=== PATIENT | male | born 1950 | race Caucasian/White ===

== ENCOUNTER 2021-04-02 08:50 | Day surgery (SDC) | payer MEDICARE, BC, SELFPAY ==
[2021-03-27 10:07] VITALS: BMI 27.1
--- NOTE | 2021-03-30 11:01 | HO.ANESPROP2 ---
Documented by User: Lillian Quinones 03/30/21 11:02 HPI - Anesthesia Eval Consult details Narrative: 70yo M for Upper Endoscopy [facility] Past Medical History Medical History Back pain Elevated cholesterol GERD (gastroesophageal reflux disease) Surgical History Surgical History History of arthroscopy of left knee Hx of bilateral cataract extraction Hx of colonoscopy Hx of tonsillectomy Social History Social History Advance Directives: No Advance Directives Information Provided: No Advance Directives on File: No Meds Allergies Allergy/AdvReac Type Severity Reaction Status Date / Time No Known Allergies Allergy Verified 03/27/21 10:03 Home Medications Medication Instructions Recorded Confirmed Last Taken Type atorvastatin 1 tab PO DAILY 07/11/20 03/27/21 Unknown History cholecalciferol (vitamin D3) 25 mcg PO DAILY 07/11/20 03/27/21 Unknown History [Vitamin D3] elderberry fruit [Elderberry] 200 mg PO DAILY 07/11/20 03/27/21 Unknown History famotidine [Pepcid AC] 20 mg PO DAILY PRN 07/11/20 03/27/21 Unknown History multivitamin 1 tab PO DAILY 07/11/20 03/27/21 Unknown History zinc 1 tab PO DAILY 07/11/20 Unknown History betamethasone dipropionate appl TOPICAL 03/27/21 03/27/21 Unknown History Exam Exam Date and Time: March 30, 2021 1101 Height,Weight and Vital Signs: Height 5 ft 11 in Weight 88.451 kg Assessment and Plan Assessment Anesthesia Assessment: Chart Reviewed Documented by User: Flakito Bennett 04/02/21 10:29 [facility] Past Medical History Medical History Back pain Elevated cholesterol GERD (gastroesophageal reflux disease) Surgical History Surgical History History of arthroscopy of left knee Hx of bilateral cataract extraction Hx of colonoscopy Hx of tonsillectomy Social History Social History Advance Directives: No Advance Directives Information Provided: No Advance Directives on File: No Meds Allergies Allergy/AdvReac Type Severity Reaction Status Date / Time No Known Allergies Allergy Verified 03/27/21 10:03 Home Medications Medication Instructions Recorded Confirmed Last Taken Type atorvastatin 1 tab PO DAILY 07/11/20 03/27/21 Unknown History cholecalciferol (vitamin D3) 25 mcg PO DAILY 07/11/20 03/27/21 Unknown History [Vitamin D3] elderberry fruit [Elderberry] 200 mg PO DAILY 07/11/20 03/27/21 Unknown History famotidine [Pepcid AC] 20 mg PO DAILY PRN 07/11/20 03/27/21 Unknown History multivitamin 1 tab PO DAILY 07/11/20 03/27/21 Unknown History zinc 1 tab PO DAILY 07/11/20 Unknown History betamethasone dipropionate appl TOPICAL 03/27/21 03/27/21 Unknown History Exam Airway Mallampati Class: III TM Dist: >3cm Neck ROM: Full Loose/Missing/Broken Teeth: No Heart: [id number] Lungs: cta b/l Assessment and Plan Assessment Anesthesia Assessment: Anesthesia Plan Discussed, PAT Visit and Chart Reviewed Final Anesthetic Review NPO: Yes ASA Class: II Final Preanesthetic Review: No Changes in Pt Med Stat, Meds/Allgs Chart Reviewed, Consent Obtained/Reviewed and Anes Risks/Benef Reviewed Patient Risk: Low Procedure Risk: Low Assessment/Block/Sedation in SS: Assess/Block/Sedation-SS Anesthetic Plan Anesthetic Plan: MAC: and Agree w/ Assess. and Plan Disposition: Standard PACU
[2021-04-02 08:59] VITALS: BP 129/87; PULSE 81; RESP 16; O2SAT 95
[2021-04-02] MEDS: Lactated Ringers 1,000 ML 100 ML IVCONT (09:11)
[2021-04-02 11:00] VITALS: BP 112/71; PULSE 74; RESP 12; TEMP 36.2; O2SAT 96
--- NOTE | 2021-04-02 11:03 | P.BOP_ITS ---
Brief Operative Note Date of Service: 04/02/21 Pre-op diagnosis: GERD Post-op diagnosis: other (Hiatal hernia, esophagitis, R/O Weems's) Procedure: EGD with biopsies Surgeon: Miguel Guzman Anesthesia: MAC Was an Instructional Assistant used for this Procedure?: No Estimated blood loss (mL): 4.0 Pathology: other (A. EG Junction at 39cm) Condition: stable Disposition: PACU
[2021-04-02 11:14] VITALS: BP 114/81; PULSE 66; RESP 18; TEMP 36.9; O2SAT 95
--- NOTE | 2021-04-02 11:29 | OP_ITS ---
SURGEON: Miguel Guzman MD INDICATIONS: The patient presents for evaluation of gastroesophageal reflux. Full consent has been obtained from him for this, including risks of bleeding and perforation. PREOPERATIVE DIAGNOSIS: Gastroesophageal reflux. POSTOPERATIVE DIAGNOSIS: PROCEDURE PERFORMED: Esophagogastroduodenoscopy with biopsies. ESTIMATED BLOOD LOSS: COMPLICATIONS: ANESTHESIA: Monitored anesthesia care. ASSISTANTS: SPECIMENS: POSTOPERATIVE DIAGNOSES: Gastroesophageal reflux, hiatal hernia, esophagitis, rule out Weems's esophagus. DESCRIPTION OF PROCEDURE: The patient was placed in the left lateral decubitus position. The Olympus video gastroscope was passed in the posterior oropharynx and upper esophagus under direct vision. The scope was passed slowly to the distal esophagus. The gastroesophageal junction appeared at 39 cm. There was some irregularity and small areas of possible Weems's mucosa. There was also a single 5 to 10 mm erosion. There was no sign of any mass nor stricture. The scope entered into the stomach. There was a small hiatal hernia. The scope was advanced to the pylorus and the duodenum was cannulated to the descending portion. The duodenum including the bulb appeared normal without mass or ulceration. The scope was withdrawn back in the stomach. The gastric antrum and body appeared normal with good peristalsis. Scope was retroflexed visualizing the proximal stomach carefully which appeared normal, without any sign of mass or ulceration. The scope was straightened out and withdrawn back into the esophagus. Multiple biopsies were obtained at the EG junction at 39 cm. Proximal to this, esophageal mucosa appeared normal. The scope was withdrawn from the patient. He tolerated the procedure well and was returned to the recovery area in stable condition. IMPRESSION: 1. Hiatal hernia. 2. Gastroesophageal reflux, rule out Weems's esophagus. 3. Reflux esophagitis. PLAN: The results of the biopsies will be checked. Given the findings, I shall give my prescription to use omeprazole 20 mg daily. He does report that he has been using Pepcid every evening, which has been working well for him. However, given the endoscopic findings, I think it would be reasonable to put him on a proton pump inhibitor instead. If there is Weems's esophagus without dysplasia, I would recommend a repeat upper endoscopy in 3 years. He will be seen in 1 year for a followup colonoscopy. This has been discussed with his . MD VAL Gallardo/ELIS / [id number]
== END 2021-04-02 11:40 | disposition home or self-care (01) ==
PROVIDERS: PCP Internal Medicine; Visit Provider Internal Medicine
PROC: 0DJ08ZZ Inspection of Upper Intestinal Tract, Via Natural or Artificial Opening Endoscopic (ICD-10-PCS; CPT 43235; principal; 2021-04-02 10:00)
DX: K21.00 Gastro-esophageal reflux disease with esophagitis, without bleeding (principal); K44.9 Diaphragmatic hernia without obstruction or gangrene; E78.00 Pure hypercholesterolemia, unspecified; Z79.899 Other long term (current) drug therapy
CPT/HCPCS: 43239; 88305

== ENCOUNTER 2022-11-01 11:54 | Day surgery (SDC) | payer MEDICARE, BC, SELFPAY ==
[2022-11-01 12:03] VITALS: BP 132/87; PULSE 80; RESP 16; TEMP 36.7; O2SAT 96; BMI 28.7
--- NOTE | 2022-11-01 13:55 | HO.ANESPROP2 ---
HPI - Anesthesia Eval Consult details Narrative: ho polyps PMFSH Past Medical History Medical History Back pain Elevated cholesterol GERD (gastroesophageal reflux disease) Family History Family history of problems with anesthesia: No Surgical History Surgical History History of arthroscopy of left knee Hx of bilateral cataract extraction Hx of colonoscopy Hx of tonsillectomy History of Problems with Anesthesia: No Social History Social History Patient Tobacco Use Status: Never used Tobacco Use of substances other than those prescribed or required for medical reasons: No Advance Directives: No Advance Directives Information Provided: Yes Nutrition Risks: No Nutritional Risk Meds Allergies Allergy/AdvReac Type Severity Reaction Status Date / Time omeprazole Allergy Unknown Verified 10/31/22 11:48 Active Medications: Current Medications Sodium Biphosphate/Sodium Phosphate (Sodium Phosphate,[place]-Dibasic 133 Ml Enema) 133 ml ME ONCE PRN PRN Reason: Poor Colonoscopy Prep Results Home Medications Medication Instructions Recorded Confirmed Last Taken Type atorvastatin 20 mg tablet 1 tab PO DAILY 07/11/20 03/27/21 Unknown History cholecalciferol (vitamin D3) 25 25 mcg PO DAILY 07/11/20 03/27/21 Unknown History mcg (1,000 unit) capsule (Vitamin D3) elderberry fruit 200 mg capsule 200 mg PO DAILY 07/11/20 03/27/21 Unknown History famotidine 10 mg tablet (Pepcid AC) 20 mg PO DAILY PRN Gastric Reflux 07/11/20 03/27/21 Unknown History multivitamin 1 tab PO DAILY 07/11/20 03/27/21 Unknown History zinc 1 tab PO DAILY 07/11/20 Unknown History betamethasone dipropionate 0.05 % appl topical 03/27/21 03/27/21 Unknown History topical cream Exam Exam Date and Time: November 01, 2022 1355 Height,Weight and Vital Signs: Height 5 ft 10 in Weight 90.718 kg Last Vital Signs Temp 98.1 F 11/01/22 12:03 Pulse 80 11/01/22 12:03 Resp 16 11/01/22 12:03 BP 132/87 11/01/22 12:03 Pulse Ox 96 11/01/22 12:03 O2 Del Method 11/01/22 12:03 Airway Mallampati Class: II TM Dist: >3cm Neck ROM: Full Loose/Missing/Broken Teeth: No Heart: rr Lungs: cta Assessment and Plan Final Anesthetic Review Family History of Problems with Anesthesia: No History of Problems with Anesthesia: No NPO: Yes ASA Class: II Final Preanesthetic Review: No Changes in Pt Med Stat, Meds/Allgs Chart Reviewed, Consent Obtained/Reviewed and Anes Risks/Benef Reviewed Patient Risk: Low Procedure Risk: Low Anesthetic Plan Anesthetic Plan: MAC: Disposition: Standard PACU
[2022-11-01 14:25] VITALS: BP 110/65; PULSE 82; RESP 16; TEMP 36.4; O2SAT 95
--- NOTE | 2022-11-01 14:25 | PM.OP ---
Brief Operative Note Date of Service: 11/01/22 Pre-op diagnosis: Screening Post-op diagnosis: other (Colon polyps) Procedure: Colonoscopy to the cecum and TI with bx/removal of polyps, and hot snare polypectomy in the Ascending colon Surgeon: Miguel Guzman Anesthesia: MAC Was an Head Baggage Porter used for this Procedure?: No Estimated blood loss (mL): 2.0 Pathology: other (A. Polyp at 50cm B. Ascending colon polyp C. Polyp at 30cm) Condition: stable Disposition: PACU
[2022-11-01 14:40] VITALS: BP 121/75; PULSE 69; RESP 18; TEMP 36.4; O2SAT 97
--- NOTE | 2022-11-02 01:51 | OP_ITS ---
SURGEON: Miguel Guzman MD INDICATIONS: The patient presents for evaluation of colorectal cancer screening and personal history of tubular adenoma of the colon. Full consent has been obtained from him for this, including risks of bleeding and perforation. PREOPERATIVE DIAGNOSIS: POSTOPERATIVE DIAGNOSIS: PROCEDURE PERFORMED: Colonoscopy to the cecum and terminal ileum with hot snare polypectomy, and biopsy and removal of polyps. ESTIMATED BLOOD LOSS: COMPLICATIONS: ANESTHESIA: Monitored anesthesia care. ASSISTANTS: SPECIMENS: PREOPERATIVE DIAGNOSES: Colorectal cancer screening and personal history of tubular adenomas of the colon. POSTOPERATIVE DIAGNOSES: Colorectal cancer screening and personal history of tubular adenomas of the colon, colon polyps, diverticulosis, and internal hemorrhoids. PROCEDURE IN DETAIL: The patient was placed in the left lateral decubitus position. The digital rectal exam revealed no abnormalities. The Olympus video pediatric colonoscope was entered into the rectum and advanced easily to the cecum. Once in the cecum, I did identify a normal-appearing cecal pouch with appendiceal orifice and a normal-appearing ileocecal valve. The terminal ileum was cannulated and appeared normal. Scope was withdrawn back into the colon. The entire cecum and ileocecal valve appeared normal. Scope was slowly withdrawn assessing all mucosal surfaces carefully. Preparation was excellent. In the ascending colon, there was approximately 10 mm polyp which was removed by hot snare polypectomy, recovered by suction. The polypectomy site appeared clean, without any sign of residual polyp nor bleeding. At 50 cm and at 30 cm were flat less than 5 mm polyps which were each biopsied and completely removed by cold biopsy forceps. I did not visualize any other polyps, colitis nor angiodysplasia. There was a mild amount of sigmoid diverticulosis. In the rectum, scope was retroflexed, visualizing internal hemorrhoids, but no other pathology. The rectal mucosa appeared normal. The scope was straightened and withdrawn from the patient. He tolerated the procedure well and was returned to the recovery area in stable condition. IMPRESSION: 1. Colon polyps. 2. Diverticulosis. 3. Internal hemorrhoids. PLAN: The results of the biopsies will be checked. I would recommend a repeat colonoscopy in 5 years. He was advised to not to use any aspirin or NSAIDS for one week. This has been discussed with his . MD VAL Gallardo/ELIS / [id number]
== END 2022-11-01 15:00 | disposition home or self-care (01) ==
PROVIDERS: PCP Internal Medicine; Visit Provider Internal Medicine
PROC: 0DJD8ZZ Inspection of Lower Intestinal Tract, Via Natural or Artificial Opening Endoscopic (ICD-10-PCS; CPT 45378; principal; 2022-11-01 13:20)
DX: Z12.11 Encounter for screening for malignant neoplasm of colon (principal); Z86.010 Personal history of colon polyps; D12.2 Benign neoplasm of ascending colon; D12.5 Benign neoplasm of sigmoid colon; K57.30 Diverticulosis of large intestine without perforation or abscess without bleeding; K64.8 Other hemorrhoids; K21.00 Gastro-esophageal reflux disease with esophagitis, without bleeding; E78.5 Hyperlipidemia, unspecified; Z79.899 Other long term (current) drug therapy; Z88.8 Allergy status to other drugs, medicaments and biological substances; Z87.891 Personal history of nicotine dependence
CPT/HCPCS: 45385; 45380; 88305

== ENCOUNTER 2022-12-18 16:07 | Emergency (ER) | payer MEDICARE, BC, SELFPAY ==
--- NOTE | ~2022-12-18 | XR_ITS ---
EXAMINATION: XR CHEST CLINICAL INFORMATION: Left-sided chest pain. COMPARISON: 07/20/2009 chest radiographs. TECHNIQUE: 2 views of the chest were obtained. FINDINGS: No significant abnormality is noted involving the heart, lungs, mediastinum, bony thorax or soft tissues. XR/XR chest 2V IMPRESSION: No acute cardiopulmonary process.
--- NOTE | ~2022-12-18 | CT_ITS ---
EXAMINATION: CT ANGIOGRAM OF THE CHEST WITH AND WITHOUT CONTRAST (CT PULMONARY ANGIOGRAM FOR PE) CLINICAL INFORMATION: Chest pain and elevated D-dimer. COMPARISON: Chest radiograph done earlier the same day. TECHNIQUE: Prior to contrast administration, noncontrast localization images were obtained. Subsequently, multidetector volumetric imaging was performed from the thoracic inlet to below the diaphragms following the administration of 65 mL Omnipaque 350 intravenous contrast. No contrast reaction reported Sagittal, coronal, and MIP oblique sagittal reformatted images were obtained on the CT workstation, uploaded to PACS, and reviewed. This CT examination was performed using dose optimization techniques as appropriate, variously including the following: *Automated exposure control *Adjustment of mA and/or kV according to patient size (this includes techniques or standardized protocols for targeted exams where dose is matched to indication/reason for exam; i.e. extremities or head) *Use of iterative reconstruction technique Total exam dose-length product: 357 mGy-cm FINDINGS: QUALITY OF STUDY/CONTRAST BOLUS: Satisfactory. PULMONARY ARTERIES: No pulmonary emboli. THORACIC AORTA: Prominence of the ascending thoracic aorta measuring up to 4.2 cm. No dissection. LUNG: No focal consolidation, nodules or masses. PLEURA: No pleural effusion or pneumothorax. MEDIASTINUM: Normal heart size. No pericardial effusion. No hilar or mediastinal lymphadenopathy. No evidence of septal bowing or right heart strain. CORONARY ARTERY CALCIFICATION: None visualized on this study. CHEST WALL/AXILLA: Present. OSSEOUS STRUCTURES: No acute or suspicious osseous abnormality. UPPER ABDOMEN: Simple left upper pole renal cyst measuring up to 2.9 cm. Findings are not clinically significant and no dedicated follow-up imaging is recommended. The visualized upper abdominal structures are otherwise unremarkable. No reflux of contrast into the hepatic veins to suggest elevated right heart pressures. CT/CT angio chest PE protocol IMPRESSION: 1. No CT angiographic evidence of acute pulmonary embolism. 2. No pulmonary nodule, mass, or airspace consolidation. 3. Prominence of the ascending thoracic aorta measuring up to 4.2 cm VTE: negative
[2022-12-18 16:11] VITALS: BP 151/84; PULSE 87; RESP 18; TEMP 37.1; O2SAT 97; BMI 27.8
--- NOTE | 2022-12-18 16:11 | ECG_ITS ---
Test Reason : chest pain Blood Pressure : / mmHG Vent. Rate : 076 BPM Atrial Rate : 076 BPM P-R Int : 162 ms QRS Dur : 078 ms QT Int : 394 ms P-R-T Axes : 029 013 049 degrees QTc Int : 443 ms Normal sinus rhythm Nonspecific ST abnormality Abnormal ECG No previous ECGs available Referred By: Ofelia Yang Electronically Signed By:EILEEN CUNHA MD
--- NOTE | 2022-12-18 16:12 | ED_ITS ---
HPI - Chest Pain General Chief Complaint: Chest Pain <TRINIDAD Patel - Last Filed: 12/18/22 16:14> Stated Complaint: chest pains <TRINIDAD Patel - Last Filed: 12/18/22 16:14> Time Seen by Provider: 12/18/22 18:28 <TRINIDAD Patel - Last Filed: 12/18/22 16:14> Source: patient and family () <Jim Sandoval MD - Last Filed: 12/18/22 20:58> Mode of arrival: ambulatory <Jim Sandoval MD - Last Filed: 12/18/22 20:58> Limitations: no limitations <Jim Sandoval MD - Last Filed: 12/18/22 20:58> History of Present Illness HPI narrative: 72-year-old male presented to the ED for left-sided chest pain. Left-sided chest pain started 4 days ago as a dull aching pain localized to the left side 1st onset of the pain while he was sleeping that it woke him up from sleep, patient was constant had some relief yesterday today since morning yesterday feels the pain again, pain is localized to the left side of the chest with no radiation feels like dull aching pain, no clear aggravating or relieving factors. Do not appear to be exertional, no SOB. Novel, lower extremities swelling or tenderness, no history of PE or DVT. No trauma to the chest no recent strenuous activity. <Jim Sandoval MD - Last Filed: 12/18/22 20:58> Related Data Home Medications: Home Medications Medication Instructions Recorded Confirmed atorvastatin 20 mg tablet 1 tab PO DAILY 07/11/20 03/27/21 cholecalciferol (vitamin D3) 25 25 mcg PO DAILY 07/11/20 03/27/21 mcg (1,000 unit) capsule (Vitamin D3) elderberry fruit 200 mg capsule 200 mg PO DAILY 07/11/20 03/27/21 famotidine 10 mg tablet (Pepcid AC) 20 mg PO DAILY PRN Gastric Reflux 07/11/20 03/27/21 multivitamin 1 tab PO DAILY 07/11/20 03/27/21 zinc 1 tab PO DAILY 07/11/20 betamethasone dipropionate 0.05 % appl topical 03/27/21 03/27/21 topical cream <TRINIDAD Patel - Last Filed: 12/18/22 16:14> Allergies/Adverse Reactions: Allergies Allergy/AdvReac Type Severity Reaction Status Date / Time omeprazole Allergy Unknown Verified 12/18/22 16:09 <TRINIDAD Patel - Last Filed: 12/18/22 16:14> Review of Systems Review of Systems: All other systems are reviewed and are negative Constitutional: Reports as per HPI and Reports no additional constitutional complaints Eyes: Reports as per HPI and Reports no additional eye complaints Reports system reviewed and no additional complaints, except as documented Cardiovascular: Reports as per HPI and Reports no additional cardiovascular complaints Respiratory: Reports as per HPI and Reports no additional respiratory complaints Gastrointestinal: Reports as per HPI and Reports no additional gastrointestinal complaints Genitourinary: Reports no additional female genitourinary complaints Musculoskeletal: Reports no additional musculoskeletal complaints Skin/Breast: Reports system reviewed and no additional complaints, except as docu Psychiatric: Reports no additional psychiatric complaints Endocrine: Reports no additional endocrine complaints Hematologic/Lymphatic: Reports no additional hematologic/lymphatic complaints Allergic/Immunologic: Reports no additional allergic/immunologic complaints Reports system reviewed and no additional complaints, except as documented and Reports Abnormal speech present <Jim Sandoval MD - Last Filed: 12/18/22 20:58> [facility] Past Medical History Medical History: Medical History Back pain Elevated cholesterol GERD (gastroesophageal reflux disease) <TRINIDAD Patel - Last Filed: 12/18/22 16:14> Surgical History: Surgical History History of arthroscopy of left knee Hx of bilateral cataract extraction Hx of colonoscopy Hx of tonsillectomy <TRINIDAD Patel - Last Filed: 12/18/22 16:14> Social History Social History: Social History Alcohol intake: current Alcohol intake frequency: holidays/special occasions only Patient Tobacco Use Status: Never used Tobacco Smoked in Last 30 Days: No Use of substances other than those prescribed or required for medical reasons: No Advance Directives: No Advance Directives Information Provided: No <TRINIDAD Patel - Last Filed: 12/18/22 16:14> Physical Exam Vital Signs: Vital Signs: Last Vital Signs Temp 97.9 F 12/18/22 19:38 Pulse 72 12/18/22 19:38 Resp 18 12/18/22 19:38 BP 142/88 H 12/18/22 19:38 Pulse Ox 98 12/18/22 19:38 O2 Del Method Room Air 12/18/22 19:38 BMI result Body Mass Index 27.8 <TRINIDAD Patel - Last Filed: 12/18/22 16:14> Vital Signs: Last Vital Signs Temp 97.9 F 12/18/22 19:38 Pulse 72 12/18/22 19:38 Resp 18 12/18/22 19:38 BP 142/88 H 12/18/22 19:38 Pulse Ox 98 12/18/22 19:38 O2 Del Method Room Air 12/18/22 19:38 BMI result Body Mass Index 27.8 Vital signs have been reviewed as appeared to be correct. Blood pressure normal. Heart rate normal. Respiration rate normal. Temperature normal. Oxygen saturation normal. <Jim Sandoval MD - Last Filed: 12/18/22 20:58> Appearance: Alert. Oriented X3. No acute distress. Head: Normal external exam. Normocephalic. Atraumatic. No [place] signs noted. No raccoon eyes noted Eyes: PERRLA. EOMI. Conjunctiva and sclera normal. Eyelids normal. ENT: TM's Normal. Pharynx normal. Uvula midline. Moist mucous membranes. No trismus noted. No drooling noted. No muffled voice noted. Neck: Normal inspection. Neck supple. FROM. No adenopathy. Thyroid Normal. No meningeal signs. No neck mass noted. CVS: Normal heart rate and rhythm. Heart sound normal. No murmurs noted. Pulses normal throughout. Respiratory: No respiratory distress. Painless inspiration. Breath sounds normal. No wheezes/rales/rhonchi noted. Reproducible tenderness to the left side of the chest, no step-off, no deformity. No accessory muscle usage noted or decreased air movement noted. Abdomen: Soft and nontender. Bowel sounds normal in all 4 quadrants. No distention noted. No organomegaly noted. No visible injury noted. Back: No CVA tenderness. Full range of motion noted. Skin: Skin warm and dry. Normal skin color. Normal skin turgor. No rashes/lesions/lacerations noted. Extremities: No lower extremity edema. Extremities exhibit normal range of motion. Extremities nontender. Neuro: Oriented X 3. Cranial nerve exam: II-XII are grossly intact No motor deficit. No sensory deficit. Reflexes normal. <Jim Sandoval MD - Last Filed: 12/18/22 20:58> Course Course Course Narrative: RME - 72 y/o male with history of HLD and GERD who presents to the ER for evaluation of intermittent, left sided sharp chest pains for the last 4 days. Pain woke him up out of sleep Friday night, was diaphoretic. He thought it was GERD. Eventually went away. Gone by yesterday but came back today at work. No further diaphoresis episodes, no associated SOB or nausea. Plan: EKG, CXR, labs, ACS r/o <TRINIDAD Patel - Last Filed: 12/18/22 16:14> Reevaluation(s) Reevaluation #1: A 72-year-old male appear well came in with atypical left-sided chest pain, unremarkable EKG with negative troponin, history is not suggesting ACS. No recent travel or lower extremity swelling or edema, elevated D-dimer with negative CT angio of the chest for pulmonary embolism, normal RR/HR and O2 sat making pulmonary embolism is not a favorable diagnosis. Unremarkable x-ray. Patient is tender to the chest wall with palpation. <Jim Sandoval MD - Last Filed: 12/18/22 20:58> Time: 18:47 <Jim Sandoval MD - Last Filed: 12/18/22 20:58> Medications Administered Discontinued Medications Generic Name Dose Route Start Last Admin Trade Name Freq PRN Reason Stop Dose Admin Ibuprofen 600 mg 12/18/22 18:38 12/18/22 19:05 Ibuprofen 600 Mg Tablet PO 12/18/22 18:39 600 mg ONCE ONE Administration Iohexol 100 ml 12/18/22 20:20 12/18/22 20:21 Iohexol 350 Mg/Ml 100 Ml Infus..Btl IV 12/18/22 20:21 65 ml ONCE ONE Administration <TRINIDAD Patel - Last Filed: 12/18/22 16:14> Medications Administered Discontinued Medications Generic Name Dose Route Start Last Admin Trade Name Dorian PRN Reason Stop Dose Admin Ibuprofen 600 mg 12/18/22 18:38 12/18/22 19:05 Ibuprofen 600 Mg Tablet PO 12/18/22 18:39 600 mg ONCE ONE Administration Iohexol 100 ml 12/18/22 20:20 12/18/22 20:21 Iohexol 350 Mg/Ml 100 Ml Infus..Btl IV 12/18/22 20:21 65 ml ONCE ONE Administration <Jim Sandoval MD - Last Filed: 12/18/22 20:58> Medical Decision Making Differential Diagnosis Differential Diagnoses: The differential diagnosis associated with the presentation includes (ACS, pulmonary embolism, pneumonia, pneumothorax, myofascial and muscular pain, rib fracture.) <Jim Sandoval MD - Last Filed: 12/18/22 20:58> Lab Data MDM Lab Attestation statement: I reviewed the patient's lab results. <Jim Sandoval MD - Last Filed: 12/18/22 20:58> Result Diagrams: 12/18/22 16:27 12/18/22 16:27 <TRINIDAD Patel - Last Filed: 12/18/22 16:14> Labs: Lab Results 12/18/22 12/18/22 12/18/22 Range/Units 16:27 16:27 16:27 WBC 5.9 (4.8-10.8) X10*3/uL RBC 4.72 (4.60-5.80) X10*6/uL Hgb 14.3 (14.0-18.0) g/dl Hct 43.5 (42.0-52.0) % MCV 92.2 (80.0-98.0) fL MCH 30.3 (27.0-33.0) pg MCHC 32.9 (31.0-36.0) g/dl RDW 12.5 (11.0-16.0) % Plt Count 171 (160-400) X10*3/uL MPV 9.2 L (9.4-12.4) fL Immature Gran % (Auto) 0.3 (0.0-0.4) % Neut % (Auto) 56.1 (45-73) % Lymph % (Auto) 32.5 (20-40) % [place] % (Auto) 9.4 (2-11) % Eos % (Auto) 1.0 (0-4) % Baso % (Auto) 0.7 (0-2) % Lymph # (Auto) 1.9 (1.2-4.9) X10*3/uL [place] # (Auto) 0.6 (0.1-1.2) X10*3/uL Eos # (Auto) 0.1 (0.0-0.4) X10*3/uL Baso # (Auto) 0.0 (0.0-0.2) X10*3/uL Abs Immat Gran (auto) 0.02 (0.00-0.03) X10*3/uL Absolute Neuts (auto) 3.3 (2.0-8.3) x10*3/uL Absolute Nucleated RBC 0.000 (0.0-0.012) X10*3/uL Nucleated RBC % (auto) 0.0 (0.0-0.2) /100WBC PT 12.8 (10.0-13.1) SEC INR 1.1 (0.9-1.1) APTT 31.4 (26.0-36.4) SEC D-Dimer High Sensitivty 391 NG/ML Sodium 141 (135-145) mmol/L Potassium 3.9 (3.3-5.1) mmol/L Chloride 104 (96-108) mmol/L Carbon Dioxide 30 H (22-29) mmol/L Anion Gap 11 L (12-20) BUN 19 H (9-16) mg/dL Creatinine 0.95 (0.5-1.4) mg/dL Estim Creat Clear Calc 79.7 Estimated GFR > 60 Random Glucose 98 (60-115) mg/dL Calcium 8.7 (8.4-10.2) mg/dL Magnesium 2.2 (1.6-2.6) mg/dL Total Bilirubin 0.8 (0.0-1.0) mg/dL Direct Bilirubin 0.3 (0.0-0.5) mg/dL AST 21 (5-37) U/L ALT 16 (0-40) U/L Alkaline Phosphatase 47 (39-117) U/L Troponin I High Sens (<3.5-35.0) ng/L Total Protein 6.2 L (6.5-8.0) g/dL Albumin 3.9 (3.5-5.0) g/dL Urine Color Urine Appearance Urine pH (5.0-9.0) Ur Specific [place] (1.005-1.025) Urine Protein (Neg-Trace) mg/dL Urine Glucose (UA) (Negative) mg/dL Urine Ketones (Negative) mg/dL Urine Blood (Negative) Urine Nitrite (Negative) Ur Leukocyte Esterase (Negative) 12/18/22 12/18/22 Range/Units 16:27 19:54 WBC (4.8-10.8) X10*3/uL RBC (4.60-5.80) X10*6/uL Hgb (14.0-18.0) g/dl Hct (42.0-52.0) % MCV (80.0-98.0) fL MCH (27.0-33.0) pg MCHC (31.0-36.0) g/dl RDW (11.0-16.0) % Plt Count (160-400) X10*3/uL MPV (9.4-12.4) fL Immature Gran % (Auto) (0.0-0.4) % Neut % (Auto) (45-73) % Lymph % (Auto) (20-40) % [place] % (Auto) (2-11) % Eos % (Auto) (0-4) % Baso % (Auto) (0-2) % Lymph # (Auto) (1.2-4.9) X10*3/uL [place] # (Auto) (0.1-1.2) X10*3/uL Eos # (Auto) (0.0-0.4) X10*3/uL Baso # (Auto) (0.0-0.2) X10*3/uL Abs Immat Gran (auto) (0.00-0.03) X10*3/uL Absolute Neuts (auto) (2.0-8.3) x10*3/uL Absolute Nucleated RBC (0.0-0.012) X10*3/uL Nucleated RBC % (auto) (0.0-0.2) /100WBC PT (10.0-13.1) SEC INR (0.9-1.1) APTT (26.0-36.4) SEC D-Dimer High Sensitivty NG/ML Sodium (135-145) mmol/L Potassium (3.3-5.1) mmol/L Chloride (96-108) mmol/L Carbon Dioxide (22-29) mmol/L Anion Gap (12-20) BUN (9-16) mg/dL Creatinine (0.5-1.4) mg/dL Estim Creat Clear Calc Estimated GFR Random Glucose (60-115) mg/dL Calcium (8.4-10.2) mg/dL Magnesium (1.6-2.6) mg/dL Total Bilirubin (0.0-1.0) mg/dL Direct Bilirubin (0.0-0.5) mg/dL AST (5-37) U/L ALT (0-40) U/L Alkaline Phosphatase (39-117) U/L Troponin I High Sens < 2.7 (<3.5-35.0) ng/L Total Protein (6.5-8.0) g/dL Albumin (3.5-5.0) g/dL Urine Color Yellow Urine Appearance Clear Urine pH 7.0 (5.0-9.0) Ur Specific [place] 1.020 (1.005-1.025) Urine Protein Negative (Neg-Trace) mg/dL Urine Glucose (UA) Negative (Negative) mg/dL Urine Ketones Negative (Negative) mg/dL Urine Blood Negative (Negative) Urine Nitrite Negative (Negative) Ur Leukocyte Esterase Negative (Negative) <TRINIDAD Patel - Last Filed: 12/18/22 16:14> Lab Results 12/18/22 12/18/22 12/18/22 Range/Units 16:27 16:27 16:27 WBC 5.9 (4.8-10.8) X10*3/uL RBC 4.72 (4.60-5.80) X10*6/uL Hgb 14.3 (14.0-18.0) g/dl Hct 43.5 (42.0-52.0) % MCV 92.2 (80.0-98.0) fL MCH 30.3 (27.0-33.0) pg MCHC 32.9 (31.0-36.0) g/dl RDW 12.5 (11.0-16.0) % Plt Count 171 (160-400) X10*3/uL MPV 9.2 L (9.4-12.4) fL Immature Gran % (Auto) 0.3 (0.0-0.4) % Neut % (Auto) 56.1 (45-73) % Lymph % (Auto) 32.5 (20-40) % [place] % (Auto) 9.4 (2-11) % Eos % (Auto) 1.0 (0-4) % Baso % (Auto) 0.7 (0-2) % Lymph # (Auto) 1.9 (1.2-4.9) X10*3/uL [place] # (Auto) 0.6 (0.1-1.2) X10*3/uL Eos # (Auto) 0.1 (0.0-0.4) X10*3/uL Baso # (Auto) 0.0 (0.0-0.2) X10*3/uL Abs Immat Gran (auto) 0.02 (0.00-0.03) X10*3/uL Absolute Neuts (auto) 3.3 (2.0-8.3) x10*3/uL Absolute Nucleated RBC 0.000 (0.0-0.012) X10*3/uL Nucleated RBC % (auto) 0.0 (0.0-0.2) /100WBC PT 12.8 (10.0-13.1) SEC INR 1.1 (0.9-1.1) APTT 31.4 (26.0-36.4) SEC D-Dimer High Sensitivty 391 NG/ML Sodium 141 (135-145) mmol/L Potassium 3.9 (3.3-5.1) mmol/L Chloride 104 (96-108) mmol/L Carbon Dioxide 30 H (22-29) mmol/L Anion Gap 11 L (12-20) BUN 19 H (9-16) mg/dL Creatinine 0.95 (0.5-1.4) mg/dL Estim Creat Clear Calc 79.7 Estimated GFR > 60 Random Glucose 98 (60-115) mg/dL Calcium 8.7 (8.4-10.2) mg/dL Magnesium 2.2 (1.6-2.6) mg/dL Total Bilirubin 0.8 (0.0-1.0) mg/dL Direct Bilirubin 0.3 (0.0-0.5) mg/dL AST 21 (5-37) U/L ALT 16 (0-40) U/L Alkaline Phosphatase 47 (39-117) U/L Troponin I High Sens (<3.5-35.0) ng/L Total Protein 6.2 L (6.5-8.0) g/dL Albumin 3.9 (3.5-5.0) g/dL Urine Color Urine Appearance Urine pH (5.0-9.0) Ur Specific [place] (1.005-1.025) Urine Protein (Neg-Trace) mg/dL Urine Glucose (UA) (Negative) mg/dL Urine Ketones (Negative) mg/dL Urine Blood (Negative) Urine Nitrite (Negative) Ur Leukocyte Esterase (Negative) 12/18/22 12/18/22 Range/Units 16:27 19:54 WBC (4.8-10.8) X10*3/uL RBC (4.60-5.80) X10*6/uL Hgb (14.0-18.0) g/dl Hct (42.0-52.0) % MCV (80.0-98.0) fL MCH (27.0-33.0) pg MCHC (31.0-36.0) g/dl RDW (11.0-16.0) % Plt Count (160-400) X10*3/uL MPV (9.4-12.4) fL Immature Gran % (Auto) (0.0-0.4) % Neut % (Auto) (45-73) % Lymph % (Auto) (20-40) % [place] % (Auto) (2-11) % Eos % (Auto) (0-4) % Baso % (Auto) (0-2) % Lymph # (Auto) (1.2-4.9) X10*3/uL [place] # (Auto) (0.1-1.2) X10*3/uL Eos # (Auto) (0.0-0.4) X10*3/uL Baso # (Auto) (0.0-0.2) X10*3/uL Abs Immat Gran (auto) (0.00-0.03) X10*3/uL Absolute Neuts (auto) (2.0-8.3) x10*3/uL Absolute Nucleated RBC (0.0-0.012) X10*3/uL Nucleated RBC % (auto) (0.0-0.2) /100WBC PT (10.0-13.1) SEC INR (0.9-1.1) APTT (26.0-36.4) SEC D-Dimer High Sensitivty NG/ML Sodium (135-145) mmol/L Potassium (3.3-5.1) mmol/L Chloride (96-108) mmol/L Carbon Dioxide (22-29) mmol/L Anion Gap (12-20) BUN (9-16) mg/dL Creatinine (0.5-1.4) mg/dL Estim Creat Clear Calc Estimated GFR Random Glucose (60-115) mg/dL Calcium (8.4-10.2) mg/dL Magnesium (1.6-2.6) mg/dL Total Bilirubin (0.0-1.0) mg/dL Direct Bilirubin (0.0-0.5) mg/dL AST (5-37) U/L ALT (0-40) U/L Alkaline Phosphatase (39-117) U/L Troponin I High Sens < 2.7 (<3.5-35.0) ng/L Total Protein (6.5-8.0) g/dL Albumin (3.5-5.0) g/dL Urine Color Yellow Urine Appearance Clear Urine pH 7.0 (5.0-9.0) Ur Specific [place] 1.020 (1.005-1.025) Urine Protein Negative (Neg-Trace) mg/dL Urine Glucose (UA) Negative (Negative) mg/dL Urine Ketones Negative (Negative) mg/dL Urine Blood Negative (Negative) Urine Nitrite Negative (Negative) Ur Leukocyte Esterase Negative (Negative) <Jim Sandoval MD - Last Filed: 12/18/22 20:58> Independent Interpretation I performed an independent interpretation of an: EKG (Normal sinus rhythm at 76 beats per minutes, normal intervals, nonspecific ST-T changes, no previous EKG to compare.) and Plain X-Ray (Chest: No acute intrathoracic pathology.) <Jim Sandoval MD - Last Filed: 12/18/22 20: 58> Radiology Impression Discussion of test interpretation with radiology: I have reviewed the radiologist's reading. <Jim Sandoval MD - Last Filed: 12/18/22 20:58> Discharge Plan Discharge Clinical Impression: Atypical chest pain, Acute chest wall pain <TRINIDDA Patel - Last Filed: 12/18/22 16:14> Patient Disposition: Home, Self-Care <TRINIDAD Patel - Last Filed: 12/18/22 16:14> Instructions: Chest Wall Pain (ED) <TRINIDAD Patel - Last Filed: 12/18/22 16:14> Prescriptions: No Action multivitamin Tablet 1 tab PO DAILY atorvastatin 20 mg tablet 1 tab PO DAILY cholecalciferol (vitamin D3) [Vitamin D3] 25 mcg (1,000 unit) Capsule 25 mcg PO DAILY zinc Tablet,Chewable 1 tab PO DAILY Elderberry 200 mg Capsule 200 mg PO DAILY famotidine [Pepcid AC] 10 mg Tablet 20 mg PO DAILY PRN (Reason: Gastric Reflux) betamethasone dipropionate 0.05 % cream topical <TRINIDAD Patel - Last Filed: 12/18/22 16:14> Referrals: Benji Hernandez MD [Physician] - <TRINIDAD Patel - Last Filed: 12/18/22 16:14> Stand Alone Forms: Work/School Release <TRINIDAD Patel - Last Filed: 12/18/22 16:14>
[2022-12-18 16:35] LABS: MANUAL DIFF FLAG NO
[2022-12-18 16:36] LABS: Basophils Percent Auto 0.7 % (0-2); Eosinophils Absolute Auto 0.1 X10*3/uL (0.0-0.4); Hematocrit 43.5 % (42.0-52.0); Hemoglobin 14.3 g/dl (14.0-18.0); Imm Gran Abs Auto 0.02 X10*3/uL (0.00-0.03); Imm Gran Pct Auto 0.3 % (0.0-0.4); Lymphocytes Absolute Auto 1.9 X10*3/uL (1.2-4.9); Lymphocytes Percent Auto 32.5 % (20-40); Mean Corpuscular HGB Conc 32.9 g/dl (31.0-36.0); Mean Corpuscular Hemoglobin 30.3 pg (27.0-33.0); Mean Corpuscular Volume 92.2 fL (80.0-98.0); Mean Platelet Volume 9.2 fL (9.4-12.4); Monocytes Absolute Auto 0.6 X10*3/uL (0.1-1.2); Monocytes Percent Auto 9.4 % (2-11); Neutrophils Absolute Auto 3.3 x10*3/uL (2.0-8.3); Neutrophils Percent Auto 56.1 % (45-73); Platelet Count 171 X10*3/uL (160-400); Red Blood Count 4.72 X10*6/uL (4.60-5.80); Red Cell Distribution Width 12.5 % (11.0-16.0); White Blood Count 5.9 X10*3/uL (4.8-10.8)
[2022-12-18 16:47] LABS: INTERNATIONAL NORM RATIO 1.1 (0.9-1.1); Prothrombin Time 12.8 SEC (10.0-13.1)
[2022-12-18 16:49] LABS: Partial Thromboplastin Time 31.4 SEC (26.0-36.4)
[2022-12-18 16:51] LABS: Alanine Aminotransferase 16 U/L (0-40); Albumin Level 3.9 g/dL (3.5-5.0); Alkaline Phosphatase 47 U/L (39-117); Anion Gap 11 (12-20); Aspartate Amino Transferase 21 U/L (5-37); Bilirubin Direct 0.3 mg/dL (0.0-0.5); Bilirubin Total 0.8 mg/dL (0.0-1.0); Blood Urea Nitrogen 19 mg/dL (9-16); Calcium 8.7 mg/dL (8.4-10.2); Carbon Dioxide 30 mmol/L (22-29); Chloride 104 mmol/L (96-108); Creatinine Clr Calc Pharmacy 79.7; Estimated Glomerular Filt Rate > 60; Glucose Random 98 mg/dL (60-115); Magnesium 2.2 mg/dL (1.6-2.6); Potassium 3.9 mmol/L (3.3-5.1); Sodium 141 mmol/L (135-145); Total Protein 6.2 g/dL (6.5-8.0)
[2022-12-18 17:04] LABS: Troponin-I High Sensitivity < 2.7 ng/L (<3.5-35.0)
[2022-12-18] MEDS: Ibuprofen 600 MG TABLET PO (19:05)
[2022-12-18 19:16] VITALS: PULSE 82
[2022-12-18 19:19] LABS: D Dimer High Sensitivity 391 NG/ML
[2022-12-18 19:38] VITALS: BP 142/88; PULSE 72; RESP 18; TEMP 36.6; O2SAT 98
[2022-12-18 20:01] LABS: Appearance Urine Clear; Color Urine Yellow; Glucose Urine UA Negative (Negative); Leukocyte Esterase Urine Negative (Negative); Nitrite Urine Negative (Negative); Urine Blood Negative (Negative); Urine Ketones Negative (Negative); Urine Protein Negative (Neg-Trace)
[2022-12-18] MEDS: iohexoL 350 MG/ML 100 ML INFUS..BTL IV (20:21)
== END 2022-12-18 21:10 | disposition home or self-care (01) ==
PROVIDERS: Physician Assistant; Emergency Provider Emergency Medicine; PCP Internal Medicine
DX: R07.89 Other chest pain (principal); E78.5 Hyperlipidemia, unspecified; Z79.02 Long term (current) use of antithrombotics/antiplatelets; Z79.899 Other long term (current) drug therapy
CPT/HCPCS: 36415; 71046; 71275; 80048; 80076; 81003; 83735; 84484; 85025; 85379; 85610; 85730; 93005; 99284; 99285; Q9967